=== PATIENT | female | born 2005 | race Caucasian/White ===

== ENCOUNTER 2025-06-08 13:25 | Emergency (ER) | payer BC, SELFPAY ==
[2025-06-08 13:39] VITALS: BP 121/70; PULSE 82; RESP 18; TEMP 36.6; O2SAT 100
--- NOTE | 2025-06-08 14:34 | ED.SKABFB ---
HPI - Skin/Abscess/Foreign Bdy General Chief complaint: Skin/Abscess/Foreign Body Stated complaint: Acne Time Seen by Provider: 06/08/25 13:42 Source: patient and RN notes reviewed Mode of arrival: ambulatory Limitations: no limitations History of Present Illness HPI narrative: 19-year-old female Patient presents today complaining of severe acne to the bilateral cheeks x2 months. Prior to 2 months ago, patient would have an acne lesion occasionally, but none that were constant or severe in nature. She has been using a gentle cleanser and moisturizer without improvement. She does not currently have a PCP. She was started back on hormonal BCP 4 months ago by her OB-DOG BREEDER and is due for a follow up next month. Related Data Home Medications ?Medication ?Instructions ?Recorded ?Confirmed ?Last Taken ?Type albuterol 90 mcg/actuation aerosol 90 mcg inhalation PRN wheezing 06/08/25 06/08/25 Unknown History inhaler budesonide-formoterol HFA 80 2 inh inhalation ONCE 06/08/25 06/08/25 Unknown History mcg-4.5 mcg/actuation aerosol inhaler (Symbicort) bupropion HCl 100 mg tablet,12 hr 100 mg PO DAILY 06/08/25 06/08/25 Unknown History sustained-release bupropion HCl 150 mg 24 hr tablet, 150 mg PO DAILY 06/08/25 06/08/25 Unknown History extended release buspirone 15 mg tablet 15 mg PO DAILY 06/08/25 06/08/25 Unknown History fluoxetine 20 mg capsule 20 mg PO QPM 06/08/25 06/08/25 Unknown History levonorgestrel-ethinyl estradiol 1 tablet PO DAILY 06/08/25 06/08/25 Unknown History 0.1 mg-20 mcg tablet (Vienva) loratadine 10 mg tablet 10 mg PO Q24H 06/08/25 06/08/25 Unknown History topiramate 50 mg tablet 50 mg PO DAILY 06/08/25 06/08/25 Unknown History Allergies Allergy/AdvReac Type Severity Reaction Status Date / Time No Known Allergies Allergy Verified 06/08/25 13:33 ON LICENSE OF [facility] Comments At time of signature, I have reviewed and agree with nursing past medical, surgical, social and family history unless otherwise noted. Please see nursing chart for further information. There is no relevant family history pertinent to the presenting complaint Exam Narrative: GENERAL: Well-appearing, well-nourished, and in no acute distress. HEAD: Normocephalic, atraumatic. EYES: EOMI. No redness or drainage. Conjunctivae normal. ENT: Mucous membranes pink and moist. NECK: Normal AROM. CHEST: No respiratory distress. EXTREMITIES: Normal range of motion. No edema. SKIN: Warm, dry. Capillary refill normal. Normal skin turgor. Patient has inflamed open and closed comedones over the entirety of her bilateral cheeks, chin, and nose. Cheeks are tender to palpation. NEURO: No focal deficits. Alert and oriented x3. Gait steady. PSYCH: Normal affect. No signs of depression or anxiety. Course Course Level of Care: Express Care Visit Vital Signs Vital signs: Vital Signs Temperature 98 F 06/08/25 13:39 Pulse Rate 82 06/08/25 13:39 Respiratory Rate 18 06/08/25 13:39 Blood Pressure 121/70 06/08/25 13:39 Pulse Oximetry 100 06/08/25 13:39 Temperature 98 F 06/08/25 13:39 Pulse Rate 82 06/08/25 13:39 Respiratory Rate 18 06/08/25 13:39 Blood Pressure 121/70 06/08/25 13:39 Pulse Oximetry 100 06/08/25 13:39 Reviewed MDM MDM Narrative Medical decision making narrative: 19-year-old female Patient presents today complaining of severe acne to the bilateral cheeks x2 months. Prior to 2 months ago, patient would have an acne lesion occasionally, but none that were constant or severe in nature. She has been using a gentle cleanser and moisturizer without improvement. She does not currently have a PCP. She was started back on hormonal BCP 4 months ago by her OB-DOG BREEDER and is due for a follow up next month. Upon exam,Patient has inflamed open and closed comedones over the entirety of her bilateral cheeks, chin, and nose. Cheeks are tender to palpation. Recommend benzol peroxide cleanser. Initial plan was to prescribe some clindamycin lotion, but this requires a prior authorization with her insurance, which I am unable to do at [facility]. Will start on low concentration Tretinoin. Discussed starting at once weekly and advancing as tolerated. Also discussed calling physician liaison number to find a new PCP that can help her better manage her acne. Patient agrees with plan. Vital signs stable. Anticipatory guidance given. Differential Diagnosis Differential Diagnosis: Acne vulgaris, rosacea, contact dermatitis Critical Care Time Critical Care Time Critical Care Time: No Discharge Plan Discharge Clinical Impression: Acne Qualifiers: Acne type: unspecified acne Qualified Code(s): L70.9 - Acne, unspecified Patient Disposition: Home Condition: Stable Instructions: Acne (ED) Additional Instructions: Please wash your face at night with a gentle benzoyl peroxide face wash, then let dry. Once weekly to start, apply a thin layer of the tretinoin onto dry skin, then moisturizer over the top. If if is too irritating, apply the moisturizer 1st, then the tretinoin, then another layer of moisturizer. Please follow-up with a PCP or someone at your student health department if symptoms do not improve. It may take several weeks, up to 6, for you to see a different in your acne. To help find a new PCP, please call the physician liaison number at [facility] at [phone]. Patient Language: Amharic Prescriptions: New tretinoin 0.05 % cream 1 applic topical HS Qty: 45 0RF No Action buspirone 15 mg tablet 15 mg PO DAILY bupropion HCl 100 mg tablet sustained-release 12 hr 100 mg PO DAILY bupropion HCl 150 mg tablet extended release 24 hr 150 mg PO DAILY fluoxetine 20 mg capsule 20 mg PO QPM levonorgestrel-ethinyl estrad [Vienva] 0.1-20 mg-mcg tablet 1 tablet PO DAILY loratadine 10 mg tablet 10 mg PO Q24H topiramate 50 mg tablet 50 mg PO DAILY budesonide-formoterol [Symbicort] 80-4.5 mcg/actuation HFA aerosol inhaler 2 inh inhalation ONCE albuterol 90 mcg/actuation aerosol 90 mcg inhalation PRN Follow-up/Referrals: PHYSICIAN,[employer] [facility] [Primary Care Provider, Internal Medicine] Time of Disposition: 14:01
== END 2025-06-08 14:04 | disposition home or self-care (01) ==
PROVIDERS: Emergency Provider Nurse Practitioner
DX: L70.9 Acne, unspecified (principal); J45.909 Unspecified asthma, uncomplicated; F41.9 Anxiety disorder, unspecified; F32.A Depression, unspecified
CPT/HCPCS: 99203; G0463